=== PATIENT | female | born 1960 | race Caucasian/White ===

== ENCOUNTER 2024-01-11 20:04 | Emergency (ER) | payer OTHER ==
[~2024-01-11] VITALS: Ht 144.8 cm; Wt 59.1 kg
[2024-01-11 20:08] VITALS: TEMP 98.4
[2024-01-12] MEDS ORDERED: GABA-530 PO (00:43)
[2024-01-12] MEDS: gabapentin 100mg capsule PO ONE (00:51)
[2024-01-12] MEDS: acetaminophen 325mg tablet PO ONE (00:52)
[2024-01-12 01:00] VITALS: BP 152/86; PULSE 77; RESP 18; O2SAT 96
== END 2024-01-12 01:01 | disposition home or self-care (01) ==
LOC: ER 20:05
DX: M79.672 Pain in left foot (principal); M79.671 Pain in right foot; Z79.899 Other long term (current) drug therapy
CPT/HCPCS: 99284